=== PATIENT | male | born 1950 | race African-American/Black ===

== ENCOUNTER 2016-12-08 17:53 | Emergency (ER) | payer MEDICARE, OTHER ==
[~2016-12-08] VITALS: Ht 190.5 cm; Wt 72.6 kg
[2016-12-08 18:46] LABS: Basophils # (auto) 0 uL; Basophils % (auto) 0.2 % (0.0-2.0); CONDITION Y; Eosinophils # (auto) 0 uL; Eosinophils % (auto) 0.5 % (0.0-7.0); Hemoglobin 15.1 g/dL (13.5-17.5); Lymphocytes # (auto) 1.1 uL; Lymphocytes % (auto) 13.8 % (10.0-50.0); Mean Corpuscular Hemoglobin 31.9 pg (28.0-32.0); Mean Corpuscular Hgb Conc. 34.2 g/dL (32.0-36.0); Mean Corpuscular Volume 93.3 fL (80.0-100.0); Mean Platelet Volume 8.8 fL (7.4-10.4); Monocytes # (auto) 0.7 uL; Monocytes % (auto) 8.4 % (0.0-12.0); Neutrophils # (auto) 6.3 uL; Neutrophils % (auto) 77.1 % (37.0-80.0); Platelet Count (auto) 203 10^3/uL (140-450); Red Cell Distribution Width 14.8 % (11.6-16.0); White Blood Cell 8.2 10^3/uL (4.4-10.8)
[2016-12-08 19:04] LABS: Albumin 3.9 g/dL (3.4-5.0); Calcium 8.9 mg/dL (8.5-10.1); Potassium 3.5 mmol/L (3.5-5.1)
[2016-12-08 19:22] LABS: Bilirubin, Total 0.8 mg/dL (0.2-1.0); Total Protein 8.7 g/dL (6.4-8.2)
[2016-12-08 23:00] VITALS: BP 169/98
== END 2016-12-09 00:25 | disposition home or self-care (01) ==
LOC: ER 17:53
DX: I10 Essential (primary) hypertension (principal); F41.9 Anxiety disorder, unspecified; R42 Dizziness and giddiness
CPT/HCPCS: 36415; 70450; 80053; 80307; 84484; 85025; 93005

== ENCOUNTER 2016-12-09 10:23 | Emergency (ER) | payer MEDICARE ==
[~2016-12-09] VITALS: Ht 190.5 cm; Wt 95.3 kg
[2016-12-09 12:42] VITALS: BP 184/110
== END 2016-12-09 14:08 | disposition left against medical advice (07) ==
LOC: ER 10:23 → EDBD 10:23 → ER 14:08
DX: R56.9 Unspecified convulsions (principal); S00.511A Abrasion of lip, initial encounter; I10 Essential (primary) hypertension; X58.XXXA Exposure to other specified factors, initial encounter; Y93.89 Activity, other specified; Y92.89 Other specified places as the place of occurrence of the external cause; Y99.8 Other external cause status
CPT/HCPCS: 93005; 94761

== ENCOUNTER 2016-12-10 10:41 | Emergency (ER) | payer MEDICARE ==
[~2016-12-10] VITALS: Ht 190.5 cm; Wt 90.7 kg
[2016-12-10 11:25] LABS: Basophils # (auto) 0 uL; Basophils % (auto) 0.4 % (0.0-2.0); CONDITION Y; Eosinophils # (auto) 0.1 uL; Eosinophils % (auto) 1.4 % (0.0-7.0); Hematocrit 42.7 % (41.0-53.0); Hemoglobin 14.3 g/dL (13.5-17.5); Lymphocytes # (auto) 1.7 uL; Lymphocytes % (auto) 18.5 % (10.0-50.0); Mean Corpuscular Hemoglobin 31.7 pg (28.0-32.0); Mean Corpuscular Hgb Conc. 33.4 g/dL (32.0-36.0); Mean Corpuscular Volume 95.1 fL (80.0-100.0); Mean Platelet Volume 8.8 fL (7.4-10.4); Monocytes % (auto) 11.5 % (0.0-12.0); Neutrophils # (auto) 6.2 uL; Neutrophils % (auto) 68.2 % (37.0-80.0); Platelet Count (auto) 208 10^3/uL (140-450); Red Cell Distribution Width 14.9 % (11.6-16.0)
[2016-12-10 11:49] LABS: Albumin 3.7 g/dL (3.4-5.0); Alkaline Phosphatase 53 U/L (45-117); Anion Gap 7 (5-15); Aspartate Aminotransferase 98 U/L (15-37); BUN/Creatinine Ratio 20.2; Blood Urea Nitrogen 18 mg/dL (7-18); Calcium 9.3 mg/dL (8.5-10.1); Carbon Dioxide 28 mmol/L (21-32); Chloride 105 mmol/L (98-107); GFR African American 110 mL/min; GFR Non-African American 91 mL/min; Glucose 108 mg/dL (74-106); Magnesium 2.4 mg/dL (1.6-2.6); Potassium 3.5 mmol/L (3.5-5.1); Sodium 140 mmol/L (136-145); Total Protein 8.4 g/dL (6.4-8.2)
[2016-12-10 12:01] VITALS: BP 144/74
== END 2016-12-10 12:46 | disposition home or self-care (01) ==
LOC: ER 10:41 → EDBD 10:41 → ER 12:46
DX: R55 Syncope and collapse (principal); I10 Essential (primary) hypertension; W19.XXXA Unspecified fall, initial encounter; Y93.89 Activity, other specified; Y99.8 Other external cause status; Y92.89 Other specified places as the place of occurrence of the external cause
CPT/HCPCS: 36415; 70450; 80053; 80320; 83735; 84484; 85025; 94761